=== PATIENT | female | born 1950 | race American Indian/Alaskan Native ===

== ENCOUNTER 2016-07-19 11:08 | Outpatient (CLI) | payer MEDICARE ==
--- NOTE | 2016-07-19 15:43 | Mammography Report ---
BILATERAL DIGITAL SCREENING MAMMOGRAM with CAD: 07/19/16 11:08:00 CLINICAL: Routine screening. COMPARISON:06/13/15 FINDINGS: The breasts are heterogeneously dense, which may obscure small masses. No mass, architectural distortion or suspicious calcifications. IMPRESSION: No mammographic evidence of malignancy. BI-RADS CATEGORY: 1 - - Negative RECOMMENDATION: Routine mammographic screening in one year. COMMENT: Patient follow-up letters are generated by our [employer] application. The
== END 2016-07-19 11:09 | disposition home or self-care (01) ==
LOC: SPVWC 11:08
PROVIDERS: ATTEND Obstetrics & Gynecology
DX: Z12.31 Encounter for screening mammogram for malignant neoplasm of breast (principal)
CPT/HCPCS: 77067; G0202

== ENCOUNTER 2016-08-14 15:33 | Outpatient (CLI) | payer MEDICARE ==
--- NOTE | 2016-08-15 09:27 | XRay Report ---
RIGHT TOES, THREE VIEWS HISTORY: Pain, cellulitis of great toe. FINDINGS: There has been previous fusion at the first metatarsophalangeal joint. There is no evidence for fracture, bone lesion or bone destruction. No periostitis. Nonspecific soft tissue swelling of the medial foot and great toe is suspected. No soft tissue gas or foreign body is detected. IMPRESSION: Soft tissue findings as described. No acute osseous findings.
== END 2016-08-14 15:34 | disposition home or self-care (01) ==
LOC: SPVIMAG 15:33
PROVIDERS: ATTEND Internal Medicine
DX: L03.032 Cellulitis of left toe (principal)